=== PATIENT | female | born 1965 | race Caucasian/White ===

== ENCOUNTER 2018-08-10 08:57 | Day surgery (SDC) | payer BC ==
[~2018-08-10 08:57] MED LIST: CEFAZOLIN 2 Gram 2 GM/50 ML BAG IVPB ONE; CELECOXIB 100 MG CAPSULE PO ONE; FAMOTIDINE 20MG TABLET PO ONE; MECLIZINE 25 MG TABLET PO ONE; METOCLOPRAMIDE 10 MG TABLET PO ONE; VANCOMYCIN HCL 1,000 MG in DEXTROSE 5 % IN WATER 250 ML IVPB ONE
[2018-08-10] MEDS ORDERED: FENTANYL PF 100MCG/2ML VIAL IV ONE (08:58)
[2018-08-10] MEDS ORDERED: EPHEDRINE SULFATE 50 MG/ML ML IV ONE (08:58)
[2018-08-10] MEDS ORDERED: TRANEXAMIC ACID 1,000 MG/10 ML ML IV ONE ×2 (08:58)
[2018-08-10] MEDS ORDERED: DEXAMETHASONE 4 MG/ML 1ML VIAL IVP ONE (08:58)
[2018-08-10] MEDS ORDERED: 0.9 % SODIUM CHLORIDE 10 ML VIAL IVP ONE ×2 (08:58)
[2018-08-10] MEDS ORDERED: MIDAZOLAM HCL 2MG/2ML VIAL IV ONE (08:58)
[2018-08-10] MEDS ORDERED: LIDOCAINE 2% MDV (20MG/ML) 20ML VIAL IV ONE (08:58)
[2018-08-10] MEDS ORDERED: BUPIVACAINE 0.5% W/EPI MPF 30 ML VIAL IVP ONE (08:58)
[2018-08-10] MEDS ORDERED: PROPOFOL 10 MG/ML VIAL IV ONE (08:58)
[2018-08-10] MEDS ORDERED: ROPIVACAINE HCL (NAROPIN) /PF 5MG/ML 20ML VIAL IV ONE (08:58)
[2018-08-10 10:07] LABS: ABO GROUP O; ANTIBODY SCREEN NEGATIVE (NEGATIVE); RH TYPE POSITIVE
[2018-08-10] MEDS ORDERED: HYDROMORPHONE HCL 2 MG/ML VIAL IM PRN (12:40)
[2018-08-10] MEDS ORDERED: MAGNESIUM HYDROXIDE 30 ML UDC PO PRN (12:40)
[2018-08-10] MEDS ORDERED: ACETAMINOPHEN 325 MG TAB PO PRN (12:40)
[2018-08-10] MEDS ORDERED: TRAMADOL HCL 50 MG TABLET PO PRN (12:40)
[2018-08-10] MEDS ORDERED: KETOROLAC 30 MG/ML VIAL IVP PRN ×2 (12:40)
[2018-08-10] MEDS ORDERED: DIPHENHYDRAMINE HCL 25 MG CAPSULE PO PRN (12:40)
[2018-08-10] MEDS ORDERED: ZOLPIDEM TARTRATE 5 MG TABLET PO PRN (12:40)
[2018-08-10] MEDS ORDERED: AL HYDROX/MAG HYDROX 30ML UD PO PRN (12:40)
[2018-08-10] MEDS ORDERED: NALOXONE 0.4 MG/1 ML VIAL IVP PRN (12:40)
[2018-08-10] MEDS ORDERED: ACETAMINOPHEN W/ CODEINE 300MG/60MG TABLET PO PRN ×2 (12:40)
[2018-08-10] MEDS ORDERED: ONDANSETRON HCL IV 4 MG/2 ML VIAL IVP PRN (12:40)
[2018-08-10] MEDS ORDERED: BISACODYL 10 MG SUPP RC PRN (12:40)
[2018-08-10] MEDS: HYDROCODONE/APAP 10/325 TABLET PO PRN ×2 (14:31→20:52)
[2018-08-10] MEDS: POTASSIUM CHLORIDE/D5-0.9%NACL 20 MEQ/1,000 ML BAG IV SCH (15:26)
--- NOTE | 2018-08-10 16:01 | Rehab Evaluation ---
Patient Information - Patient Information Diagnosis: L knee OA Ordered Treatment: PT Evaluate and Treat Status: Initial Evaluation Surgery: Yes (DANIELE) Date of Surgery: 08/10/18 Past Medical/Surgical Hx: PAST MEDICAL/SURGICAL HISTORY Past Surgical History left knee scope hyst right knee scope c scope lump removed from inner left thigh PMH - Respiratory Hx Respiratory Disorders Yes Comment: pt snores PMH - Cardiovascular Hx Cardiovascular Disorders Yes Hx Hypertension Yes: on meds good control Exercise Tolerance Fair Comment: due to knee pain, hyperlipidemia PMH - Neuro Hx Neurological Disorders No PMH - GI Hx Gastrointestinal Disorders Yes Hx Gastroesophageal Reflux Yes: on meds good control PMH - Hx Genitourinary Disorders No Comment: s/p hyst PMH - Endocrine Hx Endocrine Disorders No PMH - Musculoskeletal Hx Musculoskeletal Disorders Yes Hx Arthritis Yes Hx Osteoporosis Yes: osteopenia PMH - Psych Hx Psychiatric Problems No PMH - Hematology/Oncology Hx Hematology/Oncology Yes Disorders Hx Bruising Yes: bruises easily Premorbid Status: Detail (The patient was independent with all mobility prior to surgery.) Social History: Detail (The patient lives in a 2 story house with significant other with 4 steps and 2 handrails at the enterance. The patient will initially be staying on the first floor. The patient's bathroom is equipped with a tub/ shower combination with a shower chair, standard toilet with a commode chair with handles. No grab bars are present in the bathroom. The patient has a front wheeled walker.) Precautions: Logan, Fall, Other (WBAT on the L LE.) - Time With Patient Total Time Spent With Patient (Min): 30 Treatment Procedures: Detail (Initial Evaluation, Gait training) Subjective Information - Subjective Information Per Patient (The patient has complaints of level 1 L knee pain.) Objective Data - Mental Status Patient Orientation: Oriented x3 - Visual Perception Appears within normal limits for therapeutic activities - ROM Not within normal limits (The patient's L knee AROM is limited s/p surgery. All other LE AROM is WNL.) - Strength/Tone Not within normal limits (The patient's L LE strength was not tested s/p surgery . Functionally weakness in the L quad was noted however, the patient was able to slide L LE in and out of bed without assist. The patient's R LE strength was WNL.) - Bed Mobility Independent (The patient was independent with supine to and from sit transfer and scooting up in bed.) - Transfers Independent (The patient was independent with sit to and from stand transfer and toilet transfer.) - Balance Balance Sitting: Good Balance Standing: Good - Sensation Intact - Gait Detail (The patient ambulated with front wheeled walker a distance of 50 feet x 1 and 13 feet x 1 WBAT on the L LE with supervision for safety.) Therapy Assessment - Therapy Assessment Detail (The patient was independent with bed mobility and transfers, with supervision for safety only for ambulation. Feel the patient will progress well with mobility.) Problem List - Problem List Physical Therapy Problem List: Detail (1) Decreased L knee AROM and strength as to be expected following surgery 2) Non ambulatory on stairs) Goals - Goals Physical Therapy Goals: 1) The patient will ambulate on stairs using proper technique with supervision for safety. 2) The patient will be independent with HEP of TKA exercises. Prognosis - Prognosis Good Plan - Plan Physical Therapy Plan: PT 1-2 sessions for gait training on the stairs and instruction in HEP.
[2018-08-10] MEDS: CEFAZOLIN 2 Gram 2 GM/50 ML BAG IVPB SCH (18:08)
[2018-08-10] MEDS: DOCUSATE SODIUM 100 MG CAPSULE PO SCH (21:05)
[2018-08-10] MEDS: PANTOPRAZOLE SODIUM 40 MG TABLET PO SCH (21:05)
[2018-08-11] MEDS: POTASSIUM CHLORIDE/D5-0.9%NACL 20 MEQ/1,000 ML BAG IV SCH ×2 (01:29→04:37)
[2018-08-11] MEDS: HYDROCODONE/APAP 10/325 TABLET PO PRN ×4 (02:37→11:06)
[2018-08-11] MEDS: CEFAZOLIN 2 Gram 2 GM/50 ML BAG IVPB SCH ×2 (02:38→10:04)
[2018-08-11] MEDS: PANTOPRAZOLE SODIUM 40 MG TABLET PO SCH (06:26)
[2018-08-11 06:30] LABS: HEMATOCRIT 38.5 % (35.0-47.0); HEMOGLOBIN 12.8 gm/dl (11.6-16.0)
[2018-08-11 06:45] LABS: BLOOD UREA NITROGEN 8 mg/dL (6-20); CREATININE 0.4 mg/dL (0.5-0.9); EST GLOMERULAR FILTRATION RATE > 60 mL/min; GLUCOSE,RANDOM 133 mg/dL (74-109)
--- NOTE | 2018-08-11 09:11 | Operative Note ---
DATE OF SURGERY: 08/10/2018 PREOPERATIVE DIAGNOSIS: End-stage arthrosis of left knee. POSTOPERATIVE DIAGNOSIS: End-stage arthrosis of left knee. OPERATION: Cemented left total knee arthroplasty using [employer] Indigo II components with a size 4 Oxinium femur, a size 3 stem tibia baseplate, a 9 mm lip tibial insert. The patella was not resurfaced because it was much too thin. Surgeon: Juan Carlos Mckeon MD Anesthesia: Spinal. PREPARATION: Chloraprep. INDIVIDUAL CONSIDERATIONS: None. PROCEDURE: The patient was taken to the operating room, placed supine on the operating room table. She had a successful induction of spinal anesthetic. The left lower extremity was prepped and draped in the usual fashion. The limb was elevated and tourniquet was inflated to 250 mmHg. The patient had a midline approach to the knee. Sharp dissection carried down through skin and subcutaneous tissue. Small veins were coagulated with a Bovie. A medial arthrotomy was performed. The patella was everted and the knee was flexed. She had exposed medially, marginal osteophytes, and changes at the patellofemoral compartment. Fat pad was resected, ACL was sacrificed, provisional anterior meniscectomies were performed. The capsule was released from the medial proximal tibia. The initial femoral towboat pilot hole was then made freehand. The intramedullary femoral cutting jig was placed. It was cut in neutral with a 3-degree AP slope. It was set in 7.0 degrees of valgus and adjusted for rotation and secured with pins for a 10 mm resection. The initial transverse cut was then made. The skin guide was placed for anterior and posterior towboat pilot holes. It was found that a size 4 would be appropriate. The anterior and posterior cuts followed by chamfer cuts were made. Osteophytes removed, and a size 4 trial was placed and found to fit well. The tibia was brought forward, and the remainder of the meniscal remnants removed with a Bovie. The extraarticular tibial cutting jig was placed. It was cut in neutral with a 3-degree AP slope. Care was taken to adjust for rotation and flexion using the extraarticular alignment guide and bony landmarks. It was set for a 9 mm resection keyed off the high lateral side and secured with pins. When cutting the tibia, care was taken to preserve the PCL insertion on the tibia. Medial osteophytes were removed and I was easily able to fit a size 3. It was adjusted for rotation and secured with pins. With the femoral trial with a 9 mm lip trial, there was excellent motion and stability, ligamentous balance, rotation alignment were thought to be normal. Patellofemoral towboat pilot holes were impacted and the tibial keel stamp was impacted and these trial components were removed. The patient only had an 18 mm thick patella and even if I compensated for cartilage loss, I was only going to leave at most maybe 10-11 mm of bone. She was obese and this was not sufficient. I thought she would risk to spontaneous fracture, so I aborted doing any patellar resurfacing. Osteophytes were trimmed. The tourniquet was let down briefly to get bleeders posteriorly and then placed back up again. The knee was then thoroughly irrigated out with pulsatile Betadine and saline to remove any visual or palpable debris. Bony surfaces were then dried. A size 3 stem tibia baseplate was cemented into place followed by impaction of the 9 mm lip highly crosslinked tibial insert, followed by cementing in the size 4 Oxinium femur. The implant surfaces were compressed, excess cement was removed, and after the cement had set, there was excellent motion and stability, ligamentous balance, rotation alignment, and patellofemoral tracking were normal. No lateral release was required. Again tourniquet was let down and hemostasis with a Bovie. Thorough irrigation. The capsule was then closed with a running #2 quill, subcu was closed in layers with running 0 quill, skin was closed with cammie. The skin, subcu, and periosteum prior to closure were infiltrated with 30 mL of 0.5% Marcaine with epinephrine. A sterile bulky compressive BEN dressing was applied. The patient tolerated the procedure well. Needle and sponge counts were correct. Estimated blood loss was minimal, and she was taken back to recovery in good condition. There were no complications. CHIKA
[2018-08-11] MEDS ORDERED: CYANOCOBALAMIN (VITAMIN B-12) 100 MCG TABLET PO SCH (10:00)
[2018-08-11] MEDS ORDERED: RIVAROXABAN 10 MG TABLET PO SCH (10:00)
[2018-08-11] MEDS ORDERED: ATORVASTATIN 20 MG TABLET PO SCH (10:00)
[2018-08-11] MEDS ORDERED: FERROUS SULFATE 325 MG TAB PO SCH (10:00)
[2018-08-11] MEDS ORDERED: METOPROLOL TART 50 MG TABLET PO SCH (10:00)
--- NOTE | 2018-08-11 10:44 | Physical Therapy Tx Note ---
Physical Therapy Tx Note - Treatment Note Tolerated: Good Total Time Spent With Patient: 25 Physical Therapy Tx Note: Detail (The patient was in bed when PT arrived. The patient's daughter was present for PT treatment. The patient was independent with supine to and from sit using L LE to lift R one. The patient was independent with sit to and from stand transfer. The patient ambulated independently WBAT on the L LE with use of front wheeled walker a distance of 55 feet x1. The patient ambulated on 3 steps with use of one railing and folded walker using proper technique with supervision for safety. The patient completed the following TKA exercises including : seated heel slides, ankle pumps, gluteal sets, quad sets, hamstring sets, SLR ( with use of strap). The patient had difficulty isolating quads and with SLR. The patient completed 2 SLR without use of strap, lifting L LE 1/2 inch off bed. The patient has met all inpatient PT goals and is discharged from inpatient PT.) Physical Therapy Problem List: Detail (1) Decreased L knee AROM and strength as to be expected following surgery 2) Non ambulatory on stairs) Physical Therapy Goals: 1) The patient will ambulate on stairs using proper technique with supervision for safety (Goal Met). 2) The patient will be independent with HEP of TKA exercises. (Goal Met) Physical Therapy Plan: The patient has met all inpatient PT goals and is discharged from inpatient PT. The patient is to receive Home PT.
[2018-08-11] MEDS: DOCUSATE SODIUM 100 MG CAPSULE PO SCH (11:40)
--- NOTE | 2018-08-11 12:17 | Rehab Evaluation ---
Patient Information - Patient Information Diagnosis: L knee OA Ordered Treatment: OT Evaluate and Treat Status: Initial Evaluation Surgery: Yes ([facility]) Date of Surgery: 08/10/18 Past Medical/Surgical Hx: PAST MEDICAL/SURGICAL HISTORY Past Surgical History left knee scope hyst right knee scope c scope lump removed from inner left thigh PMH - Respiratory Hx Respiratory Disorders Yes Comment: pt snores PMH - Cardiovascular Hx Cardiovascular Disorders Yes Hx Hypertension Yes: on meds good control Exercise Tolerance Fair Comment: due to knee pain, hyperlipidemia PMH - Neuro Hx Neurological Disorders No PMH - GI Hx Gastrointestinal Disorders Yes Hx Gastroesophageal Reflux Yes: on meds good control PMH - Hx Genitourinary Disorders No Comment: s/p hyst PMH - Endocrine Hx Endocrine Disorders No PMH - Musculoskeletal Hx Musculoskeletal Disorders Yes Hx Arthritis Yes Hx Osteoporosis Yes: osteopenia PMH - Psych Hx Psychiatric Problems No PMH - Hematology/Oncology Hx Hematology/Oncology Yes Disorders Hx Bruising Yes: bruises easily Premorbid Status: Detail (The patient was independent with all I/ADL's and mobility prior to surgery.) Social History: Detail (The patient lives in a 2 story house with significant other with 4 steps and bilateral handrails at the entrance. The patient will initially be staying on the first floor. The patient's bathroom is equipped with a tub/shower combination with a shower chair, standard toilet with a 3-in- 1 commode chair with handles. No grab bars are present in the bathroom. The patient has a front wheeled walker. Daughter is a MA who will be available to assist PRN.) Precautions: Mor[place], Fall, Other (WBAT on the L LE.) - Time With Patient Total Time Spent With Patient (Min): 20 Treatment Procedures: Detail (OT EVAL LOW. Session was concluded with pt. seated EOB, daughter present, and call light within reach.) Subjective Information - Subjective Information Per Patient (R hand dominant) Objective Data - Pain Pain Present: Yes (LLE 2 or 3/10 at rest, stated just had pain meds administered.) - Mental Status Patient Orientation: Oriented x3 - Visual Perception Appears within normal limits for therapeutic activities - ROM Within normal limits (BUE WNL) - Strength/Tone Within normal limits (BUE WNL. L shd abd 4/5, all others BUE 4+/5) - Coordination Appears within normal limits for therapeutic activities - Bed Mobility Independent (supine to sit EOB) - Transfers Independent (sit<>stand modified Ind. with walker. Educ. was provided on proper hand placement and pt. returned demo.) - Balance Balance Sitting: Good Balance Standing: Fair - Sensation Intact (light touch intact BUE fingertips) - ADL's/IADL's Detail (Pt. donned elastic waist pants, undergarments, and t-shirt Ind. sit/ stand at EOB with walker. Educ. was provided in adaptive dressing techniques, pt. returned demo. Educ. provided on tub t/f techniques to reduce fall risk, and to take sponge bath until feel safe/strong enough to shower. Pt. stated she does not wear socks or shoes; just slip-on shoes/slippers occasionally.) Therapy Assessment - Therapy Assessment Detail (In-pt. OT not required. Pt. has a positive support system and assistance from daughter who is MA if needed. Pt. 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 2) The patient will be independent with HEP of TKA exercises. (Goal Met) Prognosis - Prognosis Good Plan - Plan Physical Therapy Plan: The patient has met all inpatient PT goals and is discharged from inpatient PT. The patient is to receive Home PT. Occupational Therapy Plan: D/C from OT services. Educ. was provided to call rehab dept. if Q's/concerns arise.
== END 2018-08-11 13:10 | disposition home or self-care (01) ==
LOC: SUR 08:57 → MEDSURG 13:17 → SUR 08-11 13:10
PROVIDERS: ATTEND Orthopaedic Surgery
DX: M17.12 Unilateral primary osteoarthritis, left knee (principal); I10 Essential (primary) hypertension
CPT/HCPCS: 27447; 01402; 64447; 85018; 85014; 80048; 86900; 86901; 86850; J3370; J3010; J0690 ×2; J3490 ×3; G8978; G8979 ×2; G8980; 76942; 97110; C1776; J3480; J7060